=== PATIENT | male | born 1980 ===

== ENCOUNTER → 2016-12-14 | Outpatient (REF) | LOC: WSOH 11:03 | DX: Z02.89 Encounter for other administrative examinations (principal) | CPT/HCPCS: G0463 ==

== ENCOUNTER → 2017-06-23 | Outpatient (REF) | LOC: WSOH 09:08 | DX: Z00.00 Encounter for general adult medical examination without abnormal findings (principal) ==

== ENCOUNTER → 2017-06-23 | Outpatient (REF) | LOC: WSOH 09:10 | DX: Z00.00 Encounter for general adult medical examination without abnormal findings (principal) ==